=== PATIENT | male | born 2000 | race Caucasian/White ===

== ENCOUNTER 2022-03-18 21:18 | Emergency (ER) | payer OTHER, SELFPAY ==
[2022-03-18] MEDS ORDERED: Fentanyl 100 MCG/2 ML VIAL ONE ×2 (21:21→21:30)
[2022-03-18] MEDS ORDERED: Boostrix 0.5 ML (Tdap) VIAL (>/=7 yrs of age) ONE (21:22)
[2022-03-18] MEDS ORDERED: Fluorescein Opthalmic Strip ONE (21:24)
[2022-03-18] MEDS ORDERED: Midazolam HCl 2 mg/2 ml Vial ONE ×2 (21:26→21:52)
[2022-03-18] MEDS ORDERED: Ketamine 50 MG/ML (10ML VIAL) ONE (21:34)
[2022-03-18] MEDS ORDERED: Propofol 1,000 MG/100 ML VIAL IV ONE (21:35)
[2022-03-18 21:38] LABS: Actual Bicarbonate (HCO3a) 17.2 mEq/L (22-28); Analyzer IN Cardio ER; Base Excess (BEa) -5.9 mEq/L (-2.0 to +3.0); CO2 Tension 27.7 mmHg (35.0-45.0); Calcium, Ionized (arterial) 1.06 mmol/L (1.12-1.30); Carboxyhemoglobin (COHb) 0.3 gm% (0.0-3.0); Hemoglobin (Hb) 13.9 g/dL (14.0-18.0); Potassium - ABG Lab 3.06 mmol/L (3.70-5.30); pH, Arterial 7.41 (7.35-7.45)
[2022-03-18 21:38] LABS: Hemoglobin 13.9 g/dL (14.0-18.0); Mean Corpuscular HGB CONC 35.6 g/dL (32.0-36.0); Mean Corpuscular Hemoglobin 30.9 pg (27.0-31.0); Mean Corpuscular Volume 86.8 fl (78.0-98.0); Mean Platelet Volume 8.4 fL (7.4-10.4); Platelet Count 196 10x3/uL (130-400); RBC Distribution Width 11.6 % (11.5-14.5); Red Blood Cell (RBC) Count 4.49 mill/uL (4.70-6.10); White Blood Cell (WBC) Count 7.1 10x3/uL (4.8-10.8)
[2022-03-18 21:42] LABS: INR-International Normal Ratio 1.1; PTT 26.3 sec (22.9-36.1); Prothrombin Time 14.6 sec (12.0-14.7)
[2022-03-18 21:45] LABS: Puncture Site LRA
[2022-03-18] MEDS ORDERED: Fentanyl CADD 100 ML IV SCH (21:45)
[2022-03-18 21:46] LABS: ALV-art Gradient 178.375 mmHg (0-20)
[2022-03-18 21:48] LABS: Acetaminophen Less than 10.0 mcg/mL (10.0-30.0); Alcohol 10 mg/dL (Less than 10); CK (CPK) 71 U/L (30-200); Salicylate Less than 8.0 mg/dL (15.0-30.0)
[2022-03-18 21:50] LABS: ALT (SGPT) 7 U/L (8-55); AST (SGOT) 14 U/L (5-34); Albumin 3.7 g/dL (3.5-5.0); Alkaline Phosphatase 56 U/L (40-110); Anion Gap 16 mmol/L (10-20); BUN (Urea Nitrogen) 19 mg/dL (8.9-20.6); Bilirubin, Total 0.3 mg/dL (0.2-1.2); Calc. Creatinine Clearance 0 mL/min (70-130); Calcium 7.8 mg/dL (7.8-10.44); Carbon Dioxide 15 mmol/L (22-29); Chloride 112 mmol/L (98-107); Estimated GFR 128; Globulin 2.4 g/dL (2.4-3.5); Glucose 97 mg/dL (70-105); Protein, Total 6.1 g/dL (6.0-8.3); Sodium 140 mmol/L (136-145)
[2022-03-18 21:51] LABS: Bilirubin Negative (Negative); Blood, Urine Negative (Negative); Clarity Clear (Clear); Glucose, Urine (Dipstick) Normal (Negative); Ketone, Urine Trace mg/dL (Negative); Leukocyte Negative Leu/uL (Negative); Nitrite Negative (Negative); Protein, Urine (Dipstick) Negative (Neg-Trace); Specific Gravity, Urine 1.018 (1.002-1.036); Urobilinogen Normal mg/dL (Less than 2)
[2022-03-18] MEDS ORDERED: Calcium Chloride 1 GM/10 ML Abboject SYRINGE ONE (21:55)
[2022-03-18 21:56] LABS: Band 1 % (5-11); Eosinophils 2 % (0-10); Lymphocytes 48 % (21-51); MDiff Complete? YES; Monocytes 9 % (0-10); Neutrophil 40 % (42-75); Platelet Morphology Comment Appears Adequate; RBC Morphology Normal
[2022-03-18 22:01] LABS: Amphetamine Not Detected (NotDetected); Barbiturates Screen Not Detected (NotDetected); Benzodiazepine Screen Not Detected (NotDetected); Cocaine Metabolite Screen Not Detected (NotDetected); Methadone Not Detected (NotDetected); Methamphetamine Not Detected (NotDetected); Opiate Screen Not Detected (NotDetected); Oxycodone Screen Not Detected (NotDetected); Phencyclidine (PCP) Not Detected (NotDetected); THC/Cannabinoid Screen Detected (NotDetected); Tricyclic Screen Not Detected (NotDetected)
== END 2022-03-19 00:01 | disposition short-term general hospital (02) ==
LOC: ERS 21:18 → EDBD 21:18 → ERS 03-19 00:01
DX: T20.20XA Burn of second degree of head, face, and neck, unspecified site, initial encounter (principal); T21.22XA Burn of second degree of abdominal wall, initial encounter; T23.202A Burn of second degree of left hand, unspecified site, initial encounter; T23.201A Burn of second degree of right hand, unspecified site, initial encounter; Z23 Encounter for immunization; X08.8XXA Exposure to other specified smoke, fire and flames, initial encounter
CPT/HCPCS: 36415; 36600; 71045; 74018; 80053; 80306; 80307; 81003; 82550; 82805; 83605; 85025; 85610; 85730; 86850; 86900; 86901; 90471; 90715; 94002; 94760; 96374; 96375; G0390; J2250; J2704; J3010